=== PATIENT | male | born 1965 | race Caucasian/White ===

== ENCOUNTER 2016-12-12 21:56 | Inpatient (IN) | payer BC ==
[~2016-12-12] VITALS: Ht 177.8 cm; Wt 109.2 kg
[~2016-12-12 21:56] MED LIST: ACTOS30 MG PO; ALEVE220 MG PO; ALTACE10 M1 PO; ALTACE10 MG PO; APRISO0.375 GM PO; ASPIR 8181 M1 PO; ASPIR-LOW81 M1 PO; ASPIRIN E.C.81 M1 PO; ASPIRIN81 M1 PO; B-122500 MC1 SL; CALTRATE 600600 MG PO; CELEBREX200 MG PO; CIPRO500 MG PO; CIPROFLOXACIN500 M1 PO; DAILY MULTIPLE1 EACH PO; DILAUDID2 MG PO; DOCUSATE SODIU100 MG PO; EPIPEN ADU0.3 MG/0.3 IM; FLOMAX0.4 MG PO; HYDROCODON-ACE1 EAC7 PO; KEFLEX500 MG PO; LEVAQUIN500 MG PO; LO-DOSE ASPIRIN81 M1 PO; LOPID600 M1 PO; METFORMIN HCL1000 MG PO; METOPROLOL TART50 MG PO; MOTRIN600 MG PO; NAPHCON-A EYE D15 ML BOTH EYES; NEXIUM40 MG PO; NORCO 5/3251 TABLET PO; NOVOLOG MI100 UNIT/3 SQ; NOVOLOG MI100 UNIT/M SC; PERCOCET 5/31 TABLET PO; PRAVACHOL20 MG PO; PREDNISONE50 MG PO; PREVACID30 MG PO; ROCEPHIN 2 GM VI2 GM IV; TOPROL XL50 MG PO; TORADOL10 MG PO; Tricor,Triglide PO; VALTREX1000 MG PO; VICODIN 5-3001 EACH PO; VITAMIN D250000 UNIT PO; Vicodin,Norco 5/325 PO; ZOFRAN ODT4 MG PO; ZOFRAN4 MG PO; [UNRECOGNIZED DRUG - OTHER] PO
[2016-12-12 22:23] LABS: HEMATOCRIT 43.5 % (38.0-50.0); MCH 30.2 PG (29.0-34.0); MCHC 34.7 G/DL (30.0-36.0); MEAN PLAT.VOLUME 8.9 uM^3 (9.0-12.4); PLATELET COUNT 142 K/uL (156-360); RBC DIS.WIDTH-CV 11.9 % (11.8-14.6); RBC DIS.WIDTH-SD 37.3 % (39-53); WHITE BLOOD COUNT 8.6 K/uL (4.1-10.2)
[2016-12-12 22:31] LABS: CHLORIDE 106 mEq/L (99-109); POTASSIUM 4.9 mEq/L (3.7-5.4); SODIUM 140 mEq/L (136-147)
[2016-12-12 22:33] LABS: GLUCOSE 127 mg/dL (70-99)
[2016-12-12 22:35] LABS: ANION GAP 10 MEQ/L (2-14)
[2016-12-12 22:37] LABS: GFR ESTIMATE (CALCULATED) 52 mL/min/
[2016-12-12 22:37] LABS: ADD MIUA? YES; BILIRUBIN NEGATIVE; BLOOD SMALL; COLOR YELLOW ((YELLOW)); GLUCOSE (STRIP) NEGATIVE; KETONES 5; LEUKOCYTES NEGATIVE; NITRITE NEGATIVE; PROTEIN (STRIP) NEGATIVE; SPECIFIC GRAVITY 1.019 (1.000-1.030); UROBILINOGEN 0.2 MG/DL (0.2-1.0)
[2016-12-12 22:38] LABS: UREA NITROGEN (BUN) 25 mg/dL (9-23)
[2016-12-12 23:05] LABS: BACTERIA NONE SEEN /HPF; EPITHELIAL CELLS NONE SEEN /HPF; UCUL ADDED? NO; WHITE BLOOD CELLS 0-5 /HPF (0-5)
[2016-12-12 23:06] LABS: MUCUS TRACE /LPF
[2016-12-13] MEDS ORDERED: FLAGYL500 MG PO (00:07)
[2016-12-13] MEDS ORDERED: CIPRO500 MG PO (00:07)
[2016-12-13 07:43] LABS: INTERNAL CONTROL VALID? YES
[2016-12-13 08:20] LABS: C DIFF TOXIN NEGATIVE (NEGATIVE)
[2016-12-13 08:21] LABS: PROBE CHECK PASS; SPECIMEN PROCESSING CONTROL PASS
[2016-12-13 08:22] LABS: C DIFF TOXIN NEGATIVE (NEGATIVE); PROBE CHECK PASS; SPECIMEN PROCESSING CONTROL PASS
[2016-12-13] MEDS ORDERED: DICLOXACILLIN500 MG PO (08:22)
[2016-12-13] MEDS ORDERED: COLACE100 MG PO (08:24)
[2016-12-13] MEDS ORDERED: LO-DOSE ASPIRIN81 M2 PO (08:24)
[2016-12-13] MEDS ORDERED: POTASSIUM CITR10 MEQ PO (08:28)
[2016-12-13] MEDS ORDERED: CHILDREN'S CHE1 EAC2 PO (08:29)
[2016-12-13] MEDS ORDERED: CALCIUM 500 MG1 EAC2 PO (08:30)
[2016-12-13 10:27] VITALS: BP 119/66
[2016-12-13 16:00] VITALS: BP 127/73
[2016-12-13 16:36] LABS: POINT-OF-CARE METER ID UU14174216
[2016-12-13 20:00] VITALS: BP 125/76
[2016-12-13 22:30] LABS: ALKALINE PHOSPHATASE 65 IU/L (3-129); DIRECT BILIRUBIN 0.1 mg/dL (0.0-0.3); TOTAL BILIRUBIN 0.5 MG/DL (0.0-1.0)
[2016-12-13 23:55] VITALS: BP 113/70
[2016-12-14 03:44] VITALS: BP 116/71
[2016-12-14 06:14] LABS: ALKALINE PHOSPHATASE 68 IU/L (3-129); ANION GAP 4 MEQ/L (2-14); CHLORIDE 111 MEQ/L (99-109); GFR ESTIMATE (CALCULATED) 57 mL/min/; GLUCOSE 105 mg/dL (70-99); POTASSIUM 4.2 MEQ/L (3.7-5.4); SAMPLE HEMOLYSIS CHECK 0; SAMPLE ICTERIC CHECK 0; SAMPLE LIPEMIA CHECK 0; SODIUM 137 MEQ/L (136-147); TOTAL BILIRUBIN 0.4 MG/DL (0.0-1.0); UREA NITROGEN (BUN) 17 mg/dL (9-23)
[2016-12-14 06:49] LABS: EOSINOPHIL COUNT 0.1 K/uL (0-0.3); HEMATOCRIT 36.6 % (38.0-50.0); LYMPHOCYTE COUNT 0.5 K/uL (1.0-2.8); MCHC 32.5 G/DL (30.0-36.0); MCV 89.1 FL (86-99); MEAN PLAT.VOLUME 9.6 uM^3 (9.0-12.4); MONOCYTE (%) 20.9 % (3-12); MONOCYTE COUNT 0.5 K/uL (0-0.8); NEUTROPHIL (%) 51.1 % (45-76); NEUTROPHIL COUNT 1.2 K/uL (1.8-6.4); PLATELET COUNT 103 K/uL (156-360); RBC DIS.WIDTH-CV 12.3 % (11.8-14.6); RBC DIS.WIDTH-SD 39.8 % (39-53); RED BLOOD COUNT 4.11 M/uL (4.00-5.50)
[2016-12-14 07:18] LABS: WHITE BLOOD COUNT 2.4 K/uL (4.1-10.2)
[2016-12-14 08:15] VITALS: BP 115/81
[2016-12-14 09:59] LABS: ADD MIUA? YES; BILIRUBIN NEGATIVE; BLOOD SMALL; COLOR STRAW ((YELLOW)); GLUCOSE (STRIP) NEGATIVE; KETONES NEGATIVE; LEUKOCYTES NEGATIVE; NITRITE NEGATIVE; PROTEIN (STRIP) NEGATIVE; SPECIFIC GRAVITY 1.008 (1.000-1.030); UROBILINOGEN 0.2 MG/DL (0.2-1.0)
[2016-12-14 10:25] LABS: BACTERIA NONE SEEN /HPF; EPITHELIAL CELLS NONE SEEN /HPF; MUCUS TRACE /LPF; RED BLOOD CELLS 0-5 /HPF (0-5); UCUL ADDED? NO; WHITE BLOOD CELLS 0-5 /HPF (0-5)
[2016-12-14 11:00] VITALS: BP 114/73
[2016-12-14] MEDS ORDERED: IMODIUM A-1 MG/7.5 M PO (15:20)
== END 2016-12-14 16:09 | disposition home or self-care (01) | DRG 683 ==
LOC: EME 21:56 → EDOF 12-13 06:42 → 4EAST 12-13 10:18
PROVIDERS: Emergency Medicine; Internal Medicine
DX: N17.9 Acute kidney failure, unspecified (principal); K52.1 Toxic gastroenteritis and colitis; T36.0X5A Adverse effect of penicillins, initial encounter; E86.0 Dehydration; N18.9 Chronic kidney disease, unspecified; I95.9 Hypotension, unspecified; N20.0 Calculus of kidney; E66.9 Obesity, unspecified; Z68.34 Body mass index [BMI] 34.0-34.9, adult; Z98.84 Bariatric surgery status; Z90.5 Acquired absence of kidney; Z79.82 Long term (current) use of aspirin; Z88.1 Allergy status to other antibiotic agents; Z88.5 Allergy status to narcotic agent
CPT/HCPCS: 74176; 80048; 80053; 80076; 81003; 82948; 83605; 83630; 85025; 85027; 87040; 87493; 99281; 99285; J0744; J1650; J1885; J2405; J2543; J7030

== ENCOUNTER 2017-08-02 21:03 | Emergency (ER) | payer BC ==
[~2017-08-02] VITALS: Ht 175.3 cm; Wt 106.3 kg
[~2017-08-02 21:03] MED LIST changes: +CALCIUM 500 MG1 EAC2 PO; +CHILDREN'S CHE1 EAC2 PO; +COLACE100 MG PO; +DICLOXACILLIN500 MG PO; +FLAGYL500 MG PO; +IMODIUM A-1 MG/7.5 M PO; +LO-DOSE ASPIRIN81 M2 PO; +POTASSIUM CITR10 MEQ PO
[2017-08-02] MEDS ORDERED: PERCOCET 5/31 TABLET PO (21:13)
[2017-08-02] MEDS ORDERED: VICODIN 5-3001 EACH PO (21:57)
[2017-08-02 22:00] VITALS: BP 145/90
== END 2017-08-02 22:15 | disposition home or self-care (01) ==
LOC: EME 21:03
DX: M25.511 Pain in right shoulder (principal); Z88.8 Allergy status to other drugs, medicaments and biological substances
CPT/HCPCS: 99281; 99283